=== PATIENT | female | born 1955 | race Caucasian/White ===

== ENCOUNTER 2023-11-23 13:24 | Inpatient (IN) | payer MEDICARE, OTHER, SELFPAY ==
[2023-11-23 10:14] VITALS: BP 151/73
[2023-11-23 10:37] VITALS: BMI 42.5
--- NOTE | 2023-11-23 10:52 | ED.GENMED ---
History of Present Illness
General
Chief Complaint: Abnormal Lab Value
Source: patient
Exam Limitations: none
Time Seen by Provider: 11/23/23 10:29
Nursing documentation reviewed up to this point in time: agreed with
Travel History
Have you had any contact with someone who has COVID-19?: No
Do you have any symptoms of coronavirus? Fever > 100 degrees, chills, cough, shortness of breath, sore throat, loss of taste or smell, muscle aches, or headache?: No
History of Present Illness
History of Present Illness:
68-year-old female presents with upper abdominal pain onset last started after eating some foods with citric acid from a whiskey sour mix, pains been intermittent to go to her back at times, had some fevers, nausea, had blood work as an
outpatient apparently showed some abnormalities physician referred her to the ER, no prior abdominal surgeries, drinks alcohol not excess none recently, denies any chest pains,
Past History
Past History
ED Past Medical History: HTN and NIDDM
ED Past Surgical History: Orthopedic; Negative Appendectomy or Cardiac
Social History
Tobacco: Non-smoker
Alcohol: Occasional
Drug: None
Living: with family
Employment: Retired
Review of Systems
Review of Systems
All Other Systems: Not applicable
Constitutional: Reports fever and fatigue
EENT: Reports no symptoms
Respiratory: Reports no symptoms
Cardiac: Denies chest pain
ABD/GI: Reports abdominal pain and nausea
: Reports no symptoms
Musculoskeletal: Reports no symptoms
Skin: Reports no symptoms
Neurological: Reports weakness
Endocrine: Reports no symptoms
Psychiatric: Reports no symptoms
Phy Exam
Physical Exam
Physical Exam:
Physical Exam
General: 68-year-old female mild distress nontoxic
Neck: No jaundice
Heart: s1/s2 regular rate and rhythm, no murmur. equal radial pulses.
Lungs: no acute respiratory distress. clear bilaterally
Abdomen: Obese mild epigastric tenderness
Neuro: alert and oriented. no focal neurological deficits
Skin: no rash
Psychiatric: well kept. interactive and cooperative
Extremities: no edema.
Course
Orders/Labs/Results
Orders:
Orders
11/23/23 10:29
US Abdomen Complete/Upper Urgent
Comment:
Reason For Exam: pain lfts up
11/23/23 10:38
Complete Blood Count/With Diff Urgent
Comprehensive Metabolic Panel Urgent
Lipase Urgent
PTT Urgent
Prothrombin Time Urgent
11/23/23 10:39
Electrocardiogram (*1) Urgent
Reason for Study: Abdominal Pain
EKG- Treatment ONCE
11/23/23 10:40
Blood Culture Q30M
DANILO Source: Blood/Venous
Specimen Description:
Blood Culture Q30M
DANILO Source: Blood/Venous
Specimen Description:
11/23/23 11:26
0.9% Sodium Chloride 1000 ml [Nss] 1,000 ml IV BOLUS
Piperacillin/Tazo 3.375 Gram [Zosyn] 3.375 gram in 50 ml IV NOW
11/23/23 11:28
HYDROmorphone [Dilaudid] 1 mg IV NOW STA
Abnormal Lab Results
11/23/23
10:38
WBC 4.7 L 10^3/uL
(4.8-10.8)
Absolute Lymphs (auto) 1.0 L 10^3/uL
(1.2-3.4)
Monocytes % 9.5 H %
(1.7-9.3)
APTT 36.9 H Sec
(23.4-35.0)
Creatinine 0.5 L mg/dL
(0.6-1.0)
Glucose 127 H mg/dl
(70-99)
Total Bilirubin 3.3 H mg/dl
(0.2-1.3)
AST 478 H U/L
(14-36)
ALT 554 H* U/L
(0-35)
Alkaline Phosphatase 145 H U/L
(38-126)
11/23/23 10:38
11/23/23 10:38
Vital Signs
Initial and Last Documented VS:
Initial Vital Signs
Temp Pulse Resp BP Pulse Ox
98.3 F 67 16 151/73 98
11/23/23 10:14 11/23/23 10:14 11/23/23 10:14 11/23/23 10:14 11/23/23 10:14
Last Documented Vital Signs
Temp Pulse Resp BP Pulse Ox
98.3 F 67 16 151/73 98
11/23/23 10:14 11/23/23 10:14 11/23/23 10:14 11/23/23 10:14 11/23/23 10:14
MDM/Problems Addressed
Differential Diagnosis Includes:
Biliary colic, pancreatitis, cholecystitis, hepatitis, food poisoning, nonspecific abdominal pain colitis diverticulitis
MDM/Problems Addressed:
Upper abdominal
Chronic conditions affecting care: DM and HTN
Acute Exacerbation and/or Progression of Chronic Illness: DM and HTN
*Radiology
Radiology exam reviewed: radiology read reviewed
*Pulse Oximetry
Patient hypoxic: no
*EKG
Interpreted by ED Provider?: Yes
Interpretation: normal
Comparison EKG: no comparison EKG present
Heart Rate: 78
Rate: normal
Rhythm: sinus
Ischemia: no ischemia
*Critical Care Note
Total Time (30-74mins, 75-104mins- exclusive of procedures): Not Applicable
Update Note
Update Note:
1130 update labs noted ultrasound noted concern for obstructive jaundice looks like she has stones, will require admission will start antibiotics as she did have fever
ED Attending Note
-
Portions of this chart may have been created with voice recognition software.� Occasional wrong word or��sound alike� substitutions may have occurred due to the inherent limitations of voice recognition software.
Discharge Plan
Departure
Patient Disposition: Admit
Date of Disposition: 11/23/23
Time of Disposition: 11:26
Admit to: Med/Surg
Presentation/result/management discussed w/ accepting MD/DO: Hospitalist
Patient with high blood pressure during this ER visit?: No
Discharge Problem:
Abdominal pain
Prescriptions:
No Action
atorvastatin [Lipitor] 40 mg Tablet
40 mg PO QPM
Vitamin C 60 mg Lozenge
60 mg PO DAILY
metoprolol succinate [Toprol XL] 50 mg Tablet Extended Release 24 Hr
50 mg PO DAILY
zinc sulfate 25 mg zinc (110 mg) Tablet
15 mg PO DAILY
aspirin 81 mg Tablet,Delayed Release (Dr/Ec)
81 mg PO DAILY
lisinopril-hydrochlorothiazide 10-12.5 mg Tablet
1 tab PO DAILY
metformin 500 mg Tablet Extended Release 24 Hr
500 mg PO DAILY
escitalopram oxalate [Lexapro] 5 mg Tablet
5 mg PO DAILY
cholecalciferol (vitamin D3) [Vitamin D3] 50 mcg (2,000 unit) Tablet
50 mcg PO DAILY
cyanocobalamin (vitamin B-12) 2,500 mcg Tablet
2,500 mcg PO DAILY
Interventions
Interventions:
*Risk Screen - Suicide Last Done: 11/23/23 10:37
*General Assessment Last Done: 11/23/23 10:37
*Neglect/Abuse Screening Last Done: 11/23/23 10:37
*ED COVID-19 Vaccine History Last Done: 11/23/23 10:14
Discharge Date and Time
Print Language: NORTHER[place] IRISH
[2023-11-23 11:02] LABS: % Basophils 0.4 % (0-2); % Eosinophils 2.7 % (0-6); % Immature Granulocytes 0.2 % (0-0.5); % Lymphocytes 21.1 % (20.5-51.1); % Monocytes 9.5 % (1.7-9.3); % Neutrophils 66.1 % (42.2-75.2); Absolute Eosinophils 0.1 10^3/uL (0-0.7); Absolute Monocytes 0.5 10^3/uL (0.1-0.6); Absolute Neutrophils 3.1 10^3/uL (1.4-6.5); Hematocrit 37.5 % (37.0-47.0); Hemoglobin 12.9 g/dL (12.0-16.0); Mean Corp Hgb Conc. 34.4 g/dL (33.0-37.0); Mean Corpuscular Hgb 28.7 pg (27.0-31.0); Mean Corpuscular Volume 83.3 fL (81.0-99.0); Nucleated Red Blood Cells % 0 %; Platelet Count 219 10^3/uL (130-400); Red Cell Dist. Width 13.6 % (11.5-14.5); White Blood Cell Count 4.7 10^3/uL (4.8-10.8)
[2023-11-23 11:09] LABS: APTT 36.9 Sec (23.4-35.0)
[2023-11-23 11:12] LABS: ALT (SGPT) 554 U/L (0-35); AST (SGOT) 478 U/L (14-36); Albumin 4.6 g/dl (3.5-5.0); Alkaline Phosphatase 145 U/L (38-126); Blood Urea Nitrogen 13 mg/dl (7-17); Calcium 10.1 mg/dl (8.4-10.2); Carbon Dioxide 26 mmol/L (22-30); Chloride 103 mmol/L (98-107); Estimated Creatinine Clearance 101 ml/min; Glucose 127 mg/dl (70-99); Potassium 3.8 mmol/L (3.5-5.1); Sodium 137 mmol/L (135-145); Total Bilirubin 3.3 mg/dl (0.2-1.3); Total Protein 7.2 g/dl (6.3-8.2); eGFR > 60.00
[2023-11-23] MEDS: ZOSYN 50 IV (11:39)
[2023-11-23] MEDS: NSS 1000 IV (11:41)
--- NOTE | 2023-11-23 12:20 | HPS.HSE ---
Addendum entered and electronically signed by Narciso Garcia MD 11/23/23 13:55:
68-year-old female with a past medical history of obesity, hypertension, hyperlipidemia, and type 2 diabetes now glucose intolerant presents with epigastric abdominal pain for 5 days. Patient reports her pain starting , is pressure in
intensity, intermittent, unchanged with food. She did have a fever of 100.7 at home. She started taking Augmentin prescribed by her PCP, she is afebrile currently. Associated symptoms include nausea and vomiting. No chest pain, no shortness of
breath. No black or bloody stools. Her LFTs are elevated in the emergency room, right upper quadrant abdominal ultrasound shows cholelithiasis, no CBD dilatation. Also noted is possible left renal cyst versus mass.
Will make n.p.o., give IV fluids, IV pain meds as needed, IV antiemetics as needed, IV Zosyn, check MRCP, consult GI.
I have personally seen and examined the patient, and agree with the plan of care as documented by PRISCILA Frost.
Advance care planning discussed, patient is a full code.
All other issues as outlined by the advanced care practitioner.
Total time spent to see the patient on the floor, examine the patient, review data and lab results, discuss treatment plan with patient, nursing staff around 75 minutes.
Original Note:
Family Physician
-
Family Physician: Balaji Chávez
Chief Complaint
-
Abdominal pain
History of Present Illness
68-year-old female with past medical history for hypertension, type II, hyperlipidemia presented to us with with upper abdominal pain onset last . Stated nausea or vomiting. patient denied diarrhea or constipation. Patient stated , she
ate some nuts mixed with citric acid. patient was able to spit it out because it did not taste good. She was doing fine over the weekend .pain started again last night . Patient started taking Augmentin since last night after seeing her PCP. had
blood work as an outpatient apparently showed some abnormalities physician referred her to the ER. Patient had a fever 100.6. Patient denied headache, dizziness, syncopal episode patient denied blurry vision, numbness, tingling. Patient denied
chest pain or short of breath. Patient denied dysuria hematuria.
Patient received IV Zosyn in the ER. Admitting for further management
Medical History
Past Medical History
Past Medical History: Reports Other
Additional Past Medical History:
Hypertension
Hyperlipidemia
Type 2 diabetes
Past Surgical History: Reports Other
Additional Past Surgical History:
Bilateral knee replacement
Social History
Tobacco: Non-smoker
Alcohol: Occasional
Drug: None
Family History
Family History: Not pertinent
Allergies / Home Medications
Allergies reflects when Allergies were last updated in [employer] [facility] [employer].
Home Medications with original date entered in [employer] [facility] [employer]
Allergy/Medication List:
Allergies
Allergy/AdvReac Type Severity Reaction Status Date / Time
oyster extract Allergy Unknown Verified 11/23/23 10:13
Home Medications
ascorbic acid (vitamin C) 60 mg lozenges 60 mg PO DAILY Supplement 11/23/23
aspirin 81 mg tablet,delayed release 81 mg PO DAILY Blood Clot Prevention/Tx 11/23/23
atorvastatin 40 mg tablet (Lipitor) 40 mg PO QPM High Cholesterol 11/23/23
cholecalciferol (vitamin D3) 50 mcg (2,000 unit) tablet (Vitamin D3) 50 mcg PO DAILY Supplement 11/23/23
cyanocobalamin (vitamin B-12) 2,500 mcg tablet 2,500 mcg PO DAILY Supplement 11/23/23
escitalopram oxalate 5 mg tablet (Lexapro) 5 mg PO DAILY Mental Health 11/23/23
lisinopril 10 mg-hydrochlorothiazide 12.5 mg tablet 1 tab PO DAILY Blood Pressure 11/23/23
metformin 500 mg tablet,extended release 24 hr 500 mg PO DAILY Diabetes 11/23/23
metoprolol succinate 50 mg tablet,extended release 24 hr (Toprol XL) 50 mg PO DAILY Blood Pressure 11/23/23
zinc sulfate 25 mg zinc (110 mg) tablet 15 mg PO DAILY Supplement 11/23/23
Review of Systems
-
Constitutional: Reports No Symptoms
EENT: Reports No Symptoms
Respiratory: Reports No Symptoms
Cardiac: Reports No Symptoms
Abdomen/GI: Reports Abdominal Pain, Nausea and Vomiting
: Reports No Symptoms
Musculoskeletal: Reports No Symptoms
Skin: Reports No Symptoms
Neurological: Reports No Symptoms
Endocrine: Reports No Symptoms
Hematologic/Lymphatic: Reports No Symptoms
Psych: Reports No Symptoms
Physical Exam
Vital Signs
Vital Signs
Temp Pulse Resp BP Pulse Ox
98.3 F 67 16 151/73 98
11/23/23 10:14 11/23/23 10:14 11/23/23 10:14 11/23/23 10:14 11/23/23 10:14
Physical Exam
General: Well Developed, Well Nourished and No Apparent Distress
HEENT: NormoCephalic, Moist mucous membranes and Atraumatic
Respiratory: Clear
Cardiac: S1/S2 and Regular Rhythm; No Murmur or Rub
GI: Soft, Non Tender, Non Distended and Normal Bowel Sounds; No Organomegaly
Rectal: Deferred by Provider
Musculoskeletal: No Clubbing, No Cyanosis and No Edema
Skin: No Rash
Neuro: AO x 3 and Nonfocal/grossly intact
Psych: Calm
Laboratory Results
-
11/23/23 10:38
11/23/23 10:38
Laboratory Results
PT 14.0 Sec (11.4-14.6) 11/23/23 10:38
INR 1.10 11/23/23 10:38
APTT 36.9 Sec (23.4-35.0) H 11/23/23 10:38
Total Bilirubin 3.3 mg/dl (0.2-1.3) H 11/23/23 10:38
AST 478 U/L (14-36) H 11/23/23 10:38
ALT 554 U/L (0-35) H* 11/23/23 10:38
Alkaline Phosphatase 145 U/L (38-126) H 11/23/23 10:38
Data Reviewed
-
Diagnostic Radiology: Report Reviewed by me
Lab Data: Labs Reviewed by me
Impression/Plan
-
# Abdominal pain/fever likely from CBD stones
-AST 478, ALT 554, alkaline phosphatase 145
-Abdominal ultrasound with impression of 12 mm exophytic hypoechoic mass at the upper pole of the left kidney. This may be complex cyst or solid renal neoplasm and could be best further evaluated with pre and postcontrast MRI including subtraction
imaging. Cholelithiasis Diffuse fatty infiltration of the liver
-Blood culture sent from ER
-IV Zosyn continued
-Keep n.p.o.
-Fluids continued for hydration
-MRCP tomorrow morning
-trend LFTs
-GI consulted
# Hyperlipidemia
-Hold statin due to elevated enzymes
# Anxiety
-Lexapro continued
# Essential hypertension
-HCTZ/lisinopril continued
-Metoprolol continued
# Type 2 diabetes
-Hold metformin
-Sliding scale
-Check blood sugar
# DVT prophylaxis
-SCD
# CODE STATUS
-Full code
[2023-11-23 12:24] LABS: Lipase 92 U/L (23-300)
--- NOTE | 2023-11-23 13:22 | CON.GI ---
Addendum entered and electronically signed by Sundar Ingram MD 11/23/23 16:00:
I saw and examined the patient.
The PA's note was reviewed and I agree with the note.
Comment:
Pt is a 68 year old female with h/o HTN, hypercholesterolemia, and NIDDM p/w abdominal pain. Severe epigastric pain few days ago associated with nausea/vomiting, which recurred today. On 11/21 she had low grade fever (100.7) PCP prescribed
Augmentin which she took last night. After medication she did see dark orange urine but thought it may have been medication. In addition to symptoms she also relates some mild LFT elevation about 2 months ago. Labs per family repeated with
normal LFT's 2 weeks ago.
Impression / Rec:
1. Abdominal pain, elevated LFT - denies biliary pain symptoms during preceding weeks. US on admission showed cholelithiasis and CBD 5 mm. Diffuse fatty infiltrate of liver. LFT was elevated with bili 3.3, AST 478, ALT 554, Alk phos 145 with
normal lipase. Given her pain and elevated LFT in setting of cholelithiasis, will need to consider possible underlying choledocholithiasis, agree with MRI/MRCP. Will also check viral hep panel. NPO from midnight in case.
Original Note:
Consultation
-
Date/Time Consultation Requested: 11/23/23 1300
Date/Time Consultation Performed: 11/23/23 1345
Requesting Provider: PRISCILA Jackson
Performing Provider: PRISCILA Riley, Sundar Ingram MD
Reason for Consultation: abdominal pain, fever, elevated LFT's
Medical History
Chief Complaint / HPI
Chief Complaint: abdominal pain, fever
History of Present Illness:
Pt is a 68yo with hx HTN, hypercholesterolemia, NIDDM, b/l TKR with onset of upper abdominal pain since last week. She started with pain on last after eating nuts with citric acid food additive. She states she spit out nuts as too much
additive. She felt better over the weekend then noted abdominal pain and vomiting after food and then edwige joe. She did try tums without improvement. 11/21 she developed fever and went to PCP with treatment given of Augmentin and PPI therapy.
After medication she did see dark orange urine but thought it may have been medication. In addition to symptoms she also relates some mild LFT elevation about 2 months ago. Labs per family repeated with normal LFT's 2 weeks ago. She then had
repeat OP LFt's prior to admission with fever and marked elevation leading to ER evaluation. On admission US with 12 mm exophytic mass upper pole left kidney. cholelithiasis. CBD 5 mm. Diffuse fatty infiltrate of liver. On admission noted
with bili 3.3, AST 478, ALT 554, Alk phos 145 with normal lipase.
At this time pt admits to intense upper abdominal pain prior to admission but now improved without eating. She did have non bloody emesis of food and edwige joe and occasional chronic GERD with certain foods. She denies wt loss, dysphagia,
diarrhea or rectal bleeding.
Past Medical History
Past Medical History: HTN, Hypercholesterolemia, NIDDM and Psychiatric (anxiety)
Past Surgical History: Orthopedic (b/l TKR)
Social History
Tobacco: Non-Smoker
Alcohol: Occasional (social )
Drug: None
Living: Other (with someone)
Employment: Retired
Family History
Family History: Other (mother with hx sherlyn,PUD no family hx colon CA)
Allergies / Home Medications
Allergy/AdvReac Type Severity Reaction Status Date / Time
oyster extract Allergy Unknown Verified 11/23/23 10:13
�Medication �Instructions �Recorded
ascorbic acid (vitamin C) 60 mg 60 mg PO DAILY Supplement 11/23/23
lozenges
aspirin 81 mg tablet,delayed 81 mg PO DAILY Blood Clot 11/23/23
release Prevention/Tx
atorvastatin 40 mg tablet (Lipitor) 40 mg PO QPM High Cholesterol 11/23/23
cholecalciferol (vitamin D3) 50 50 mcg PO DAILY Supplement 11/23/23
mcg (2,000 unit) tablet (Vitamin
D3)
cyanocobalamin (vitamin B-12) 2,500 mcg PO DAILY Supplement 11/23/23
2,500 mcg tablet
escitalopram oxalate 5 mg tablet 5 mg PO DAILY Mental Health 11/23/23
(Lexapro)
lisinopril 10 1 tab PO DAILY Blood Pressure 11/23/23
mg-hydrochlorothiazide 12.5 mg
tablet
metformin 500 mg tablet,extended 500 mg PO DAILY Diabetes 11/23/23
release 24 hr
metoprolol succinate 50 mg 50 mg PO DAILY Blood Pressure 11/23/23
tablet,extended release 24 hr
(Toprol XL)
zinc sulfate 25 mg zinc (110 mg) 15 mg PO DAILY Supplement 11/23/23
tablet
Review of Systems
-
History Source: Patient and Family
Constitutional: Reports Fever
EENT: Reports No Symptoms
Respiratory: Reports No Symptoms
Cardiac: Reports No Symptoms
Abdomen/GI: Reports Abdominal Pain, Nausea and Vomiting
: Reports Dark Urine
Musculoskeletal: Reports No Symptoms
Skin: Reports No Symptoms
Neurological: Reports No Symptoms
Endocrine: Reports No Symptoms
Hematologic/Lymphatic: Reports No Symptoms
Vital Signs
Temp Pulse Resp BP Pulse Ox
98.3 F 67 16 151/73 98
11/23/23 10:14 11/23/23 10:14 11/23/23 10:14 11/23/23 10:14 11/23/23 10:14
Physical Exam
Exam
General: Well Developed, Well Nourished and No Apparent Distress
HEENT: Other (mild jaundice )
Respiratory: Clear
Cardiac: Regular Rhythm
GI: Soft, Non Tender and Non Distended
Musculoskeletal: No Clubbing and No Cyanosis
Skin: Warm and Dry
Neuro: Awake, Alert and AO x 3
Psych: Calm
Results
WBC 4.7 10^3/uL (4.8-10.8) L 11/23/23 10:38
Hgb 12.9 g/dL (12.0-16.0) 11/23/23 10:38
Hct 37.5 % (37.0-47.0) 11/23/23 10:38
MCV 83.3 fL (81.0-99.0) 11/23/23 10:38
Plt Count 219 10^3/uL (130-400) 11/23/23 10:38
Absolute Neuts (auto) 3.1 10^3/uL (1.4-6.5) 11/23/23 10:38
PT 14.0 Sec (11.4-14.6) 11/23/23 10:38
INR 1.10 11/23/23 10:38
APTT 36.9 Sec (23.4-35.0) H 11/23/23 10:38
Sodium 137 mmol/L (135-145) 11/23/23 10:38
Potassium 3.8 mmol/L (3.5-5.1) 11/23/23 10:38
Chloride 103 mmol/L (98-107) 11/23/23 10:38
Carbon Dioxide 26 mmol/L (22-30) 11/23/23 10:38
BUN 13 mg/dl (7-17) 11/23/23 10:38
Creatinine 0.5 mg/dL (0.6-1.0) L 11/23/23 10:38
Calcium 10.1 mg/dl (8.4-10.2) 11/23/23 10:38
Total Bilirubin 3.3 mg/dl (0.2-1.3) H 11/23/23 10:38
AST 478 U/L (14-36) H 11/23/23 10:38
ALT 554 U/L (0-35) H* 11/23/23 10:38
Alkaline Phosphatase 145 U/L (38-126) H 11/23/23 10:38
Lipase 92 U/L (23-300) 11/23/23 10:38
Diagnostic Image Results:
11/22 US abdomen
1).There is a 12 mm exophytic hypoechoic mass at the upper pole of the left kidney. This may be complex cyst or solid renal neoplasm and could be best further evaluated with pre and postcontrast MRI including subtraction imaging.
2). Cholelithiasis
3). Diffuse fatty infiltration of the liver
Prior GI Procedures:
EGD: none
Colonoscopy: 2 years ago normal in [place]
Assessment / Plan
-
Pt is a 68yo with hx HTN, hypercholesterolemia, NIDDM, b/l TKR with onset of upper abdominal pain since last week. She started with pain on last after eating nuts with citric acid food additive. She states she spit out nuts as too much
additive. She felt better over the weekend then noted abdominal pain and vomiting after food and then edwige joe. She did try tums without improvement. 11/21 she developed fever and went to PCP with treatment given of Augmentin and PPI therapy.
After medication she did see dark orange urine but thought it may have been medication. In addition to symptoms she also relates some mild LFT elevation about 2 months ago. Labs per family repeated with normal LFT's 2 weeks ago. She then had
repeat OP LFt's prior to admission with fever and marked elevation leading to ER evaluation. On admission US with 12 mm exophytic mass upper pole left kidney. cholelithiasis. CBD 5 mm. Diffuse fatty infiltrate of liver. On admission noted
with bili 3.3, AST 478, ALT 554, Alk phos 145 with normal lipase.
-epigastric abdominal pain
-elevated LFT's with recent elevation several months ago
-fever
-cholelithiasis
-exophytic renal mass
-fatty liver
other medical problems:
-HTN
-hypercholesterolemia
-NIDDM
-b/l TKR
PLAN:
etiology of abdominal pain with fever, dark urine and elevated LFT's related to biliary obstruction vs other
prior elevation possible fatty liver vs other labs results not reviewed
plan for MRI with MRCP
NPO
trend labs
blood cx with recent fever
cont abx
discussed with patient and family plan -- she is scheduled for flight tomorrow night and cruise on wednesday will need further data but reviewed risk of fever, sepsis etc if biliary obstructive process if work up not completed pt agreeable to stay
family updated
-
-
Thank you for consultation and allowing me to participate in the patient's care. Please call the [facility] physician during the after hours with any questions or concerns.
[2023-11-23 14:20] VITALS: BP 140/71
[2023-11-23 14:30] VITALS: BP 154/67; BMI 43.5
--- NOTE | 2023-11-23 14:40 | PTCARENOTE ---
Received patient from ED via WC. Pt AAOX3. VSS. Patient denies abdominal pain at this time. Daughter at bedside. Call durán within reach. Plan of care ongoing.
[2023-11-23] MEDS: D5/0.45%NACL 1000 IV (14:48)
--- NOTE | 2023-11-23 16:00 | W.PN.UPDATE ---
Update Note
Progress Note Update
billing note
[2023-11-23 16:56] LABS: Glucose - Point of Care 109 mg/dl (70-99)
[2023-11-23 17:17] LABS: Hepatitis B Surface Antigen Negative (Negative)
[2023-11-23 17:19] LABS: Hepatitis A IgM Antibody Negative (Negative)
[2023-11-23 17:34] LABS: Hepatitis B Surface Antibody Negative; Hepatitis C Antibody Negative (Negative)
[2023-11-23 21:28] LABS: Glucose - Point of Care 126 mg/dl (70-99)
[2023-11-23 23:54] VITALS: BP 141/74
[2023-11-24 00:35] LABS: Glucose - Point of Care 122 mg/dl (70-99)
[2023-11-24] MEDS: D5/0.45%NACL 1000 IV (03:08)
[2023-11-24 05:14] LABS: Hematocrit 33.1 % (37.0-47.0); Hemoglobin 11.2 g/dL (12.0-16.0); Mean Corp Hgb Conc. 33.8 g/dL (33.0-37.0); Mean Corpuscular Hgb 29.2 pg (27.0-31.0); Mean Corpuscular Volume 86.4 fL (81.0-99.0); Mean Platelet Volume 9.2 fL (7.4-10.4); Platelet Count 171 10^3/uL (130-400); Red Blood Cell Count 3.83 10^6/uL (4.20-5.40); Red Cell Dist. Width 13.3 % (11.5-14.5); White Blood Cell Count 5.7 10^3/uL (4.8-10.8)
[2023-11-24 05:42] LABS: ALT (SGPT) 423 U/L (0-35); AST (SGOT) 216 U/L (14-36); Albumin 3.6 g/dl (3.5-5.0); Alkaline Phosphatase 112 U/L (38-126); Blood Urea Nitrogen 11 mg/dl (7-17); Calcium 9.2 mg/dl (8.4-10.2); Carbon Dioxide 27 mmol/L (22-30); Chloride 107 mmol/L (98-107); Estimated Creatinine Clearance 101 ml/min; Glucose 125 mg/dl (70-99); Potassium 3.8 mmol/L (3.5-5.1); Sodium 138 mmol/L (135-145); Total Bilirubin 1.7 mg/dl (0.2-1.3); Total Protein 5.9 g/dl (6.3-8.2); eGFR > 60.00
[2023-11-24 06:13] LABS: Glucose - Point of Care 148 mg/dl (70-99)
[2023-11-24 07:55] VITALS: BP 143/82
--- NOTE | 2023-11-24 08:31 | W.PN.HOSP.TC ---
Today's Communication/Plan
-
Cleared by GI for discharge today.
Assessment / Plan
Assessment / Plan
HPI: 68-year-old female with a past medical history of obesity, hypertension, hyperlipidemia, and type 2 diabetes now glucose intolerant presents with epigastric abdominal pain for 5 days. Patient reports her pain starting , is pressure in
intensity, intermittent, unchanged with food. She did have a fever of 100.7 at home. She started taking Augmentin prescribed by her PCP, she is afebrile currently. Associated symptoms include nausea and vomiting. No chest pain, no shortness of
breath. No black or bloody stools. Her LFTs are elevated in the emergency room, right upper quadrant abdominal ultrasound shows cholelithiasis, no CBD dilatation. Also noted is possible left renal cyst versus mass.
#Elevated LFTs/transaminitis
#Cholelithiasis
#Epigastric abdominal pain/fever
Suspect past gallstone
MRCP neg for CBD stone, Hep panel neg
Appreciate GI input, patient has tolerated a low-cholesterol diet, currently on IV zosyn
Medically stable for discharge, follow-up with GI in the office
She can finish the Augmentin that she has at home since she had reported fever at home
Needs repeat LFTs w/ PCP in 1 week
#Fatty liver
Follow-up with GI in the office
# Hyperlipidemia
Hold statin due to elevated enzymes
Can resume in 2 weeks
#Left renal cyst
Outpatient follow-up
#Morbid obesity due to excess calories
Affects all aspects of care
#Prediabetes
Hemoglobin A1c 6.1
Resume metformin upon DC
# Essential hypertension
-HCTZ/lisinopril continued
-Metoprolol continued
Physical Exam
General: Obese, no acute distress
HEENT: Normocephalic, Atraumatic, EOMI, MMM
Respiratory: Clear to Auscultation bilaterally
Cardiac: Normal S1/S2, Regular Rate and Rhythm
GI: Soft, Nontender, Nondistended, Normal Bowel Sounds
Extremities: No Clubbing, Cyanosis, or Edema
Neuro: Nonfocal/Grossly Intact
Psych: Calm, Cooperative
Derm: No Visible lesions
Anticipated Discharge: Today
Subjective/Interval History
-
Date of Service: November 24, 2023
Abdominal pain resolved. No fever, no nausea, no vomiting. Has bloating from gas.
Objective Data
-
Labs:
Laboratory Results
11/24/23 11/24/23
04:44 04:45
WBC 5.7
Hgb 11.2 L
Hct 33.1 L
Plt Count 171 D
Sodium 138
Potassium 3.8
Chloride 107
Carbon Dioxide 27
BUN 11
Creatinine 0.5 L
Glucose 125 H
Calcium 9.2
Total Bilirubin 1.7 H D
AST 216 H
ALT 423 H
Alkaline Phosphatase 112
Vital Signs:
Vital Signs
Temp Pulse Resp BP Pulse Ox
97.9 F 76 18 141/74 95
11/23/23 23:54 11/23/23 23:54 11/23/23 23:54 11/23/23 23:54 11/23/23 23:54
I&O
11/23/23 11/24/23 11/25/23
06:59 06:59 06:59
Intake Total 1080 / 1080
Balance 1080 / 1080
[2023-11-24 09:09] LABS: Glycohemoglobin (HgbA1c) 6.1 % (4.0-5.6)
--- NOTE | 2023-11-24 09:46 | W.PN.GI.CBS2 ---
Addendum entered and electronically signed by Sundar Ingram MD 11/24/23 11:16:
I saw and examined the patient.
The PA's note was reviewed and I agree with the note.
Comment:
LFT improving, MRI/MRCP pending. Denies abdo pain. Hep panel -ve. If MRCP -ve for choledocholithiasis, can d/c home.
Original Note:
Today's Communication / Plan
-
etiology of abdominal pain with fever, dark urine and elevated LFT's related to biliary obstruction vs other
prior elevation possible fatty liver vs other labs results not reviewed
minimal pain overnight and LFT's improved ? passed stone
plan for MRI with MRCP this am -- reviewed with MRI for timing
NPO and cont NPO til MRI reviewed
trend labs
blood cx with recent fever pending
cont abx
due for trip this week-- pending MRI, blood cx if able to proceed. Discussed if discharged low fat diet, if increased pain/fever return to local hospital
Assessment / Plan
-
Pt is a 68yo with hx HTN, hypercholesterolemia, NIDDM, b/l TKR with onset of upper abdominal pain since last week. She started with pain on last after eating nuts with citric acid food additive. She states she spit out nuts as too much
additive. She felt better over the weekend then noted abdominal pain and vomiting after food and then edwige joe. She did try tums without improvement. 11/21 she developed fever and went to PCP with treatment given of Augmentin and PPI therapy.
After medication she did see dark orange urine but thought it may have been medication. In addition to symptoms she also relates some mild LFT elevation about 2 months ago. Labs per family repeated with normal LFT's 2 weeks ago. She then had
repeat OP LFt's prior to admission with fever and marked elevation leading to ER evaluation. On admission US with 12 mm exophytic mass upper pole left kidney. cholelithiasis. CBD 5 mm. Diffuse fatty infiltrate of liver. On admission noted
with bili 3.3, AST 478, ALT 554, Alk phos 145 with normal lipase.
Laboratory Tests
11/23/23 11/24/23
10:38 04:44
Total Bilirubin 3.3 H 1.7 H D
AST 478 H 216 H
ALT 554 H* 423 H
Alkaline Phosphatase 145 H 112
-epigastric abdominal pain
-elevated LFT's with recent elevation several months ago
-fever
-cholelithiasis
-exophytic renal mass
-fatty liver
other medical problems:
-HTN
-hypercholesterolemia
-NIDDM
-b/l TKR
PLAN:
etiology of abdominal pain with fever, dark urine and elevated LFT's related to biliary obstruction vs other
prior elevation possible fatty liver vs other labs results not reviewed
minimal pain overnight and LFT's improved ? passed stone
plan for MRI with MRCP this am -- reviewed with MRI for timing
NPO and cont NPO til MRI reviewed
trend labs
blood cx with recent fever pending
cont abx
due for trip this week-- pending MRI, blood cx if able to proceed. Discussed if discharged low fat diet, if increased pain/fever return to local hospital
Subjective
Subjective
Date of Service: November 24, 2023
NPO for MRI, small amount of pain overnight but no fever
Objective
Data Reviewed
Laboratory Data:
Laboratory Results
11/24/23 04:45
11/24/23 04:44
Laboratory Results
PT 14.0 Sec (11.4-14.6) 11/23/23 10:38
INR 1.10 11/23/23 10:38
APTT 36.9 Sec (23.4-35.0) H 11/23/23 10:38
Total Bilirubin 1.7 mg/dl (0.2-1.3) H D 11/24/23 04:44
AST 216 U/L (14-36) H 11/24/23 04:44
ALT 423 U/L (0-35) H 11/24/23 04:44
Alkaline Phosphatase 112 U/L (38-126) 11/24/23 04:44
Lipase 92 U/L (23-300) 11/23/23 10:38
Vital Signs and I&O:
Vital Signs
Temp Pulse Resp BP Pulse Ox
98.2 F 69 16 143/82 94
11/24/23 07:55 11/24/23 07:55 11/24/23 07:55 11/24/23 07:55 11/24/23 07:55
I&O
11/23/23 11/24/23 11/25/23
06:59 06:59 06:59
Intake Total 1080 / 1080
Balance 1080 / 1080
Physical Exam
Physical Exam
HEENT: Anicteric and Moist mucous membranes
Cardiology: Normal Sinus Rhythm
Pulmonary: Clear
GI: Soft, Non Distended and Non Tender
Extremities: No Edema
Neuro: Non Focal
--- NOTE | 2023-11-24 11:16 | W.PN.UPDATE ---
Update Note
Progress Note Update
billing note
[2023-11-24 11:39] LABS: Glucose - Point of Care 136 mg/dl (70-99)
[2023-11-24 13:37] VITALS: BP 161/81
[2023-11-24] MEDS: TOPROL XL 50 MG PO (13:38)
[2023-11-24] MEDS: ORETIC 12.5 MG PO (13:38)
[2023-11-24] MEDS: ZESTRIL 10 MG PO (13:39)
[2023-11-24] MEDS: LEXAPRO 5 MG PO (13:39)
--- NOTE | 2023-11-24 13:48 | W.PN.UPDATE ---
Update Note
Progress Note Update
11/24/23 MRI/MRCP
Mild hepatomegaly with mild fatty infiltration.
Cholelithiasis. Minor focus of adenomyomatosis involving the gallbladder fundus.
No bile duct dilatation. No MR evidence to suggest choledocholithiasis.
Mild left parapelvic cyst formation. 5 mm nonenhancing cyst in the upper pole cortex of the left kidney. Lateral midpole left renal 9 mm exophytic cyst, corresponding to the finding on ultrasound examination.
reviewed MRI with patient copy given to her
blood cx neg at 24 hours
plan to advance low fat diet and monitor tolerance
if tolerating consider discharge later
discussed with patient due for trip today vs tomorrow--low fat diet, small portions, if increase pain, fever return to ER.
OP surgical eval
OP GI follow up for fatty liver
reviewed with Dr. Garcia
--- NOTE | 2023-11-24 14:15 | CM ---
met with patient at bedside.patient lives with her in house with no steps to enter,her bed and bath is on the first level.she amb I and is I with her adl's.her pcp is dr meredith and she uses [facility] in [facility] .patient
has nver had avn or been in ip rehab..patient is adm with abd pain.she is for an mri with [facility].possible dc today with gi follow up for fatty liver and low fat diet.Plan:patient will have no needs when dc home.
--- NOTE | 2023-11-24 15:41 | W.DCSUMMARY ---
Discharge Summary
Discharge Data
Date of Admission: 11/23/23
Date of Discharge: 11/24/23
-
Pending Results: No
Hospital Course
Discharge diagnoses:
Epigastric abdominal pain
Probable passed stone
Cholelithiasis/gallstones
Transaminitis/elevated liver function test
Fatty liver
Left renal cysts
Glucose intolerance with a hemoglobin A1c of 6.1
Morbid obesity
Consults: GI
Abd US:
1).There is a 12 mm exophytic hypoechoic mass at the upper pole of the left kidney. This may be complex cyst or solid renal neoplasm and could be best further evaluated with pre and postcontrast MRI including subtraction imaging.
2). Cholelithiasis
3). Diffuse fatty infiltration of the liver
MRCP:
Mild hepatomegaly with mild fatty infiltration.
Cholelithiasis. Minor focus of adenomyomatosis involving the gallbladder fundus.
No bile duct dilatation. No MR evidence to suggest choledocholithiasis.
Mild left parapelvic cyst formation. 5 mm nonenhancing cyst in the upper pole cortex of the left kidney. Lateral midpole left renal 9 mm exophytic cyst, corresponding to the finding on ultrasound examination.
Hospital course:
68-year-old female with a past medical history of obesity, hypertension, hyperlipidemia, and type 2 diabetes now glucose intolerant presents with epigastric abdominal pain for 5 days. Patient reports fever at home, has been taking Augmentin
prescribed by her PCP. Abdominal ultrasound in the ER showed gallstones, fatty liver, possible left renal cyst. Her LFTs were elevated, lipase normal.
Patient was seen in conjunction with GI. She received IV Zosyn, pain control, antiemetics. Her abdominal pain resolved in the ER, and she did not have any recurrence. MRCP was negative for CBD stone, does confirm fatty liver, cholelithiasis, left
renal cyst. Hepatitis panel is negative. She was started on and tolerated a low-cholesterol diet.
Patient is medically stable and cleared by GI for discharge. She needs repeat LFTs with her PCP in 1 week. She has been instructed to hold her statin for 2 weeks. She can finish the Augmentin that her PCP prescribed her. GI recommends outpatient
follow-up with general surgery for possible cholecystectomy, referral has been added to her discharge instructions. She needs to follow-up with her PCP in 1 week, as well as GI in the office in 4-6 weeks.
Disposition: Home self-care
Discharge planning: Required 36 minutes
Discharge Plan
-
Patient Disposition: Home (Routine Discharge)
Discharge Diagnosis/Procedures: Epigastric abdominal pain, possibly due to passed stone, cholelithiasis/gallstones, fatty liver, left renal cyst, elevated liver function tests, morbid obesity, glucose intolerance hemoglobin A1c 6.1
Condition: Good
Diet: Low Fat and Diabetic, Carb Controlled
Additional Diets: low fat diet, small meals, do not over eat on upcoming trip
Activity: As tolerated
Driving Restrictions: As prior to admission
Blood Work: repeat Liver function 1 week with primary care
Activity Restrictions/Additional Instructions:
You have been referred to general surgery outpatient, for possible removal of your gallbladder due to your gallstones.
Please follow-up with GI as directed.
If you prefer a female GI doctor, you can ask for Dr. Oly Garcia. She is in the same office as Dr. Ingram.
Please follow-up with your primary care doctor in 1 week.
Referrals:
Sundar Ingram MD [Active] - (follow up with Dr. Ingram and Nurse practioner to review for fatty liver. Call with any recurrent abdominal pain. If severe return to ER.)
Moncho Flores MD [Active] - (consider surgical eval for eventual removal of gallbladder. )
Balaji Chávez DO [Family Provider] - in one week
Prescriptions:
Continued
ascorbic acid (vitamin C) 60 mg Lozenge
60 mg PO DAILY
metoprolol succinate [Toprol XL] 50 mg Tablet Extended Release 24 Hr
50 mg PO DAILY
zinc sulfate 25 mg zinc (110 mg) Tablet
15 mg PO DAILY
aspirin 81 mg Tablet,Delayed Release (Dr/Ec)
81 mg PO DAILY
lisinopril-hydrochlorothiazide 10-12.5 mg Tablet
1 tab PO DAILY
metformin 500 mg Tablet Extended Release 24 Hr
500 mg PO DAILY
escitalopram oxalate [Lexapro] 5 mg Tablet
5 mg PO DAILY
cholecalciferol (vitamin D3) [Vitamin D3] 50 mcg (2,000 unit) Tablet
50 mcg PO DAILY
cyanocobalamin (vitamin B-12) 2,500 mcg Tablet
2,500 mcg PO DAILY
Held
atorvastatin [Lipitor] 40 mg Tablet
40 mg PO QPM
Hold Instructions: Resume on 12/08/23.
Discharge Orders:
Discharge Patient (As Directed); Ordered 11/24/23
Ordered By: Narciso Garcia
Discharge Date and Time
Discharge Date/Time: 11/24/23 16:23
Print Language: FRISIAN
== END 2023-11-24 16:23 | disposition home or self-care (01) | DRG 445 ==
LOC: 4 EAST ACU 13:24
PROVIDERS: Registered Nurse; ADMITTING PHYSICIAN Family Medicine; CONSULT PHYSICIAN Internal Medicine Gastroenterology; EMERGENCY PHYSICIAN Emergency Medicine; FAMILY PHYSICIAN Internal Medicine
DX: K80.70 Calculus of gallbladder and bile duct without cholecystitis without obstruction (principal); Z68.41 Body mass index [BMI] 40.0-44.9, adult; E11.9 Type 2 diabetes mellitus without complications; I10 Essential (primary) hypertension; K21.9 Gastro-esophageal reflux disease without esophagitis; F41.9 Anxiety disorder, unspecified; N28.1 Cyst of kidney, acquired; E66.01 Morbid (severe) obesity due to excess calories; E78.00 Pure hypercholesterolemia, unspecified; K76.0 Fatty (change of) liver, not elsewhere classified; N28.89 Other specified disorders of kidney and ureter; Z96.653 Presence of artificial knee joint, bilateral; Z79.82 Long term (current) use of aspirin; Z79.84 Long term (current) use of oral hypoglycemic drugs
CPT/HCPCS: 74183; 76700; 80053; 82962; 83036; 83690; 85025; 85027; 85610; 85730; 86706; 86709; 86803; 87040; 87340; 93005; 96361; 96365; 99285; A9575

== ENCOUNTER 2024-11-17 03:20 | Emergency (ER) | payer MEDICARE, OTHER, SELFPAY ==
[2024-11-17 03:24] VITALS: BP 188/90
--- NOTE | 2024-11-17 03:45 | ED.GENMED ---
History of Present Illness
General
Chief Complaint: Flank Pain
Source: patient
Time Seen by Provider: 11/17/24 03:40
History of Present Illness
History of Present Illness:
This patient is a 69-year-old female who states that she went to fed feeling her usual self and awoke at approximately 1 AM with severe left-sided flank pain that now radiates down to the left groin area. The pain is constant without exacerbating
relieving factors and is associated with nausea and nonbloody vomiting. She denies fever, chills, chest pain, dyspnea, headache, dizziness. She is urinating as usual without gross blood or pain. She denies diarrhea or constipation. Incidentally,
patient was recently diagnosed with microscopic hematuria and is in the midst of a workup.
Past History
Past History
ED Past Medical History: HTN and NIDDM
ED Past Surgical History: Orthopedic; Negative Appendectomy or Cardiac
Social History
Tobacco: Non-smoker
Alcohol: Occasional
Drug: None
Living: with family
Employment: Retired
Phy Exam
Physical Exam
Physical Exam:
GENERAL: Alert , appears uncomfortable
EYE: pupils equal and reactive
NECK: Supple, no significant adenopathy.
ENT: o/p clr, mmm.
CARDIAC: Regular rate and rhythm .
LUNGS: Clear breath sounds bilaterally, no acute respiratory distress, no wheezes/rales/rhonchi
ABDOMEN: Soft, without focal tenderness, no r/g, no cvat
NEUROLOGICAL: Alert and oriented, no focal neuro deficits
SKIN: Warm and dry, skin intact.
MUSCULOSKELETAL: No edema, well perfused.
PSYCH: Normal and appropriate interaction.
Course
Orders/Labs/Results
Orders:
Orders
11/17/24 03:29
EKG [Electrocardiogram (*1)] Urgent
Reason for Study: Chest Pain
11/17/24 03:30
EKG- Treatment ONCE
11/17/24 03:45
CT Abd/pel Without Iv Or Oral Urgent
Comment:
Reason For Exam: l flank pain
0.9% Sodium Chloride 1000 ml [Nss] 1,000 ml IV BOLUS
Ketorolac [Toradol] 15 mg IV NOW STA
Ondansetron Injectable [Zofran] 4 mg IV NOW STA
11/17/24 03:55
Complete Blood Count/No Diff Urgent
Comprehensive Metabolic Panel Urgent
11/17/24 05:00
Urinalysis Reflex To Culture Urgent
Date Specimen was Collected: 11/17/24
Time Specimen was Collected: 04:50
Urine Microscopic Reflex Cult Urgent
Urine Culture Urgent
DANILO Source: U
Specimen Description:
Date Specimen was Collected: 11/17/24
Time Specimen was Collected: 04:50
11/17/24 05:56
Morphine Sulfate 4 mg IV NOW STA
11/17/24 05:57
Morphine Sulfate 4 mg .ROUTE .STK-MED ONE
Abnormal Lab Results
11/17/24 11/17/24
03:55 05:00
Hct 36.9 L %
(37.0-47.0)
Potassium 3.4 L mmol/L
(3.5-5.1)
BUN 22 H mg/dl
(7-17)
Glucose 198 H mg/dl
(70-99)
Calcium 10.6 H mg/dl
(8.4-10.2)
Urine Ketones 1+ A
(Negative)
Ur Occult Blood Reflex 4+ A
(Negative)
Leukocyte Esterase Rfl 3+ A
(Negative)
Urine RBC 11-15 A /HPF
(0-2)
Urine Bacteria (Reflex) Few A
(Negative)
Urine Glucose 1+ A
(Negative)
Urine Albumin (Reflex) 2+ A
(Neg - Trace)
04/18/25 03:55
11/17/24 03:55
Vital Signs
Initial and Last Documented VS:
Initial Vital Signs
Temp Pulse Resp BP Pulse Ox
97.5 F 82 20 188/90 100
11/17/24 03:24 11/17/24 03:24 11/17/24 03:24 11/17/24 03:24 11/17/24 03:24
Last Documented Vital Signs
Temp Pulse Resp BP Pulse Ox
97.5 F 69 18 155/72 97
11/17/24 03:24 11/17/24 05:54 11/17/24 05:54 11/17/24 05:54 11/17/24 05:54
*Critical Care Note
Total Time (30-74mins, 75-104mins- exclusive of procedures): Not Applicable
Update Note
Update Note:
Patient presents to the Emergency Department with __left flank pain to left groin associated with microscopic hematuria
Number and Complexity of Problems Addressed at the Encounter
� Chronic conditions affecting care:
� Acute Exacerbation and/or Progression of Chronic Illness:
� Differential Diagnosis includes: But not limited to kidney stone, obstructing stone, glomerulonephritis, musculoskeletal pain, etc. etc. etc.
Amount and/or Complexity of Data to be Reviewed and Analyzed
� I performed an independent evaluation of and my interpretation is:
EKG:
CT: Read by vision 3 mm stone at the left UVJ with mild left hydro no bowel obstruction status postcholecystectomy normal appendix. Small hiatal hernia, diverticulosis
Xrays:
Laboratory Studies: Generally unremarkable
Other:
� Review of other/old records reveals:
� Clinical information was obtained by an independent historian:
� Prescriptions/Medications Considered but not given:
� Further testing considered but not performed:
Risk of Complications and/or Morbidity or Mortality of Patient Management
� Social determinants of health affecting care:
� Discussion with other providers (PCP, Hospitalists, Consultants, etc):
� Escalation of care including admission/observation vs risk of discharge considered: All CT findings discussed with patient and her . Her pain is now minimal and she declines further pain medication, smiling, very
comfortable. Discussed with her expectant management for trial of passage. She has an established relationship with a urologist in [place] who she plans to follow-up with. Will evaluate her UA before consideration for discharge. Patient given
strainer.
616am pain sl returned, now resolved with repeat dose. stable for d/c. Nontoxic, no fever, etc.
ED Attending Note
-
Portions of this chart may have been created with voice recognition software.� Occasional wrong word or��sound alike� substitutions may have occurred due to the inherent limitations of voice recognition software.
Discharge Plan
Departure
Patient Disposition: Home (Routine Discharge)
Date of Disposition: 11/17/24
Time of Disposition: 06:16
Patient with high blood pressure during this ER visit?: Yes
Condition: Good
Discharge Problem:
Kidney stone
Instructions: Kidney Stones (DC), How to Strain Your Urine, BLOOD PRESSURE, Narcotic Pain Medication
Prescriptions:
New
tamsulosin [Flomax] 0.4 mg capsule
0.4 mg PO DAILY Qty: 10 0RF
oxycodone-acetaminophen [Percocet] 5-325 mg tablet
1 tab PO Q4HPRN PRN (Reason: pain) Qty: 17 0RF
ondansetron HCl 4 mg tablet
4 mg PO Q8H PRN (Reason: nausea and vomiting) Qty: 7 0RF
No Action
atorvastatin [Lipitor] 40 mg Tablet
40 mg PO QPM
ascorbic acid (vitamin C) 60 mg Lozenge
60 mg PO DAILY
metoprolol succinate [Toprol XL] 50 mg Tablet Extended Release 24 Hr
50 mg PO DAILY
zinc sulfate 25 mg zinc (110 mg) Tablet
15 mg PO DAILY
aspirin 81 mg Tablet,Delayed Release (Dr/Ec)
81 mg PO DAILY
lisinopril-hydrochlorothiazide 10-12.5 mg Tablet
1 tab PO DAILY
metformin 500 mg Tablet Extended Release 24 Hr
500 mg PO DAILY
escitalopram oxalate [Lexapro] 5 mg Tablet
5 mg PO DAILY
cholecalciferol (vitamin D3) [Vitamin D3] 50 mcg (2,000 unit) Tablet
50 mcg PO DAILY
cyanocobalamin (vitamin B-12) 2,500 mcg Tablet
2,500 mcg PO DAILY
Referrals:
UNKNOWN - PT DOES,NOT KNOW [Family Provider] -
Activity Restrictions/Additional Instructions:
IF YOU DEVELOP PERSISTENT OR NEW PAIN, FEVER, CHILLS, PAIN WITH URINATION, DIFFICULTY URINATING, OR OTHER WORRISOME SIGNS, PLEASE RETURN TO THE ER IMMEDIATELY ! PLEASE SEE YOUR UROLOGIST THIS WEEK.
Interventions
Interventions:
*Risk Screen - Suicide Last Done: 11/17/24 03:24
*Nursing Disposition Last Done: 11/17/24 06:26
YH-Yntipk-Tqxbecfdej Assessment Last Done: 11/17/24 04:00
ED-Female Genitourinary Assessment Last Done: 11/17/24 04:00
Discharge Date and Time
Discharge Date/Time: 11/17/24 06:26
Print Language: MALAY
[2024-11-17] MEDS: TORADOL 15 MG IV (03:55)
[2024-11-17] MEDS: NSS 1000 IV (03:56)
[2024-11-17] MEDS: ZOFRAN 4 MG IV (03:56)
[2024-11-17 04:13] LABS: Hematocrit 36.9 % (37.0-47.0); Hemoglobin 12.8 g/dL (12.0-16.0); Mean Corp Hgb Conc. 34.7 g/dL (33.0-37.0); Mean Corpuscular Hgb 29.6 pg (27.0-31.0); Mean Corpuscular Volume 85.2 fL (81.0-99.0); Mean Platelet Volume 9.1 fL (7.4-10.4); Platelet Count 215 10^3/uL (130-400); Red Blood Cell Count 4.33 10^6/uL (4.20-5.40); Red Cell Dist. Width 13.2 % (11.5-14.5); White Blood Cell Count 9.2 10^3/uL (4.8-10.8)
[2024-11-17 04:38] LABS: ALT (SGPT) 27 U/L (0-35); AST (SGOT) 24 U/L (14-36); Albumin 4.7 g/dl (3.5-5.0); Alkaline Phosphatase 66 U/L (38-126); Blood Urea Nitrogen 22 mg/dl (7-17); Calcium 10.6 mg/dl (8.4-10.2); Carbon Dioxide 22 mmol/L (22-30); Chloride 107 mmol/L (98-107); Glucose 198 mg/dl (70-99); Potassium 3.4 mmol/L (3.5-5.1); Sodium 143 mmol/L (135-145); Total Bilirubin 0.9 mg/dl (0.2-1.3); Total Protein 6.8 g/dl (6.3-8.2); eGFR > 60.00
[2024-11-17 05:06] LABS: Urine Albumin 2+ (Neg - Trace); Urine Bilirubin Negative (Negative); Urine Color Yellow; Urine Glucose 1+ (Negative); Urine Ketone 1+ (Negative); Urine Leukocyte 3+ (Negative); Urine Nitrite Negative (Negative); Urine Occult Blood 4+ (Negative); Urine Urobilinogen Negative (Neg - 1+)
[2024-11-17 05:07] LABS: Urine Character Slightly Cloudy (Clear)
[2024-11-17 05:54] VITALS: BP 155/72
[2024-11-17] MEDS: MORPHINE SULFATE 4 MG IV (05:58)
[2024-11-17 06:46] LABS: Urine Bacteria Few (Negative)
== END 2024-11-17 06:26 | disposition home or self-care (01) ==
LOC: EMR 03:20
PROVIDERS: EMERGENCY PHYSICIAN Emergency Medicine
DX: N13.2 Hydronephrosis with renal and ureteral calculous obstruction (principal); E11.9 Type 2 diabetes mellitus without complications; I10 Essential (primary) hypertension; Z90.49 Acquired absence of other specified parts of digestive tract
CPT/HCPCS: 99284; 96374; 96375; 96361; 74176; 80053; 81003; 81015; 85027; 87086; 93005